=== PATIENT | male | born 1955 | race Caucasian/White ===

== ENCOUNTER 2017-10-17 14:02 | Emergency (ER) | payer OTHER ==
[2017-10-17 14:16] VITALS: BMI 25.8
--- NOTE | 2017-10-17 14:30 | C.PDOC ---
History Of Present Illness 62 year old male is brought in by EMS after being found outside [employer]-[address] intoxicated. Patient was laying on the ground and was brought in by EMS for further evaluation. Patient has slurred speech but is conscious. Patient denies any acute complaints, SI/HI, hallucinations. Patient had a bottle of vodka on him that was removed. Chief Complaint (Nursing): Substance Abuse History Per: Patient History/Exam Limitations: intoxication Onset/Duration Of Symptoms: Hrs Current Symptoms Are (Timing): Still Present Suicide/Self Injury Attempted (Context): None Modifying Factor(s): Alcohol Associated Symptoms: denies: Depression, Suicidal Thoughts, Suicidal Plan Involuntary Hold By: None Recent travel outside of the [place]: No Additional History Per: Patient Past Medical History Reviewed: Historical Data, Nursing Documentation, Vital Signs Vital Signs: Last Vital Signs Temp Pulse 93 H 10/17/17 17:54 Resp 16 10/17/17 17:54 BP 138/85 10/17/17 17:54 Pulse Ox 98 10/17/17 17:54 - Medical History PMH: Depression Surgical History: Hernia Repair Family History: States: Unknown Family Hx - Social History Hx Tobacco Use: Yes Hx Alcohol Use: Yes Hx Substance Use: No - Immunization History Hx Tetanus Toxoid Vaccination: No Hx Influenza Vaccination: No Hx Pneumococcal Vaccination: No Review Of Systems Constitutional: Negative for: Fever, Chills Cardiovascular: Negative for: Chest Pain Respiratory: Negative for: Cough, Shortness of Breath Gastrointestinal: Negative for: Nausea, Vomiting, Abdominal Pain Skin: Negative for: Rash Neurological: Negative for: Weakness, Numbness Psych: Negative for: Depression, Suicidal ideation Physical Exam - Physical Exam Appears: Non-toxic, No Acute Distress Skin: Normal Color, Warm, Dry Head: Atraumatic, Normacephalic Eye(s): bilateral: Normal Inspection Nose: No Discharge Oral Mucosa: Moist Neck: Normal ROM, Supple Chest: Symmetrical Cardiovascular: Rhythm Regular, No Murmur Respiratory: Normal Breath Sounds, No Rales, No Rhonchi, No Wheezing Gastrointestinal/Abdominal: Soft, No Tenderness, No Guarding, No Rebound Extremity: Normal ROM, No Tenderness, No Swelling Neurological/Psych: Oriented x3 Medical Decision Making Medical Decision Making: Impression: Alcohol intoxication Plan: * Frequent neurological checks * D/C when sober Disposition - Disposition Disposition: ELOPEMENT - ER ONLY Disposition Time: 09:09 Condition: FAIR Forms: [facility] (Spanish) - Clinical Impression Clinical Impression: Alcohol intoxication - Scribe Statement The provider has reviewed the documentation as recorded by the Scribe Ellis Chacko All medical record entries made by the Scribe were at my direction and personally dictated by me. I have reviewed the chart and agree that the record accurately reflects my personal performance of the history, physical exam, medical decision making, and the department course for this patient. I have also personally directed, reviewed, and agree with the discharge instructions and disposition.
[2017-10-17 14:37] VITALS: RESP 16
[2017-10-17 17:54] VITALS: BP 138/85; PULSE 93; O2SAT 98
== END 2017-10-17 18:20 | disposition left against medical advice (07) ==
LOC: C.ER 14:02
DX: F10.129 Alcohol abuse with intoxication, unspecified (principal); Y90.9 Presence of alcohol in blood, level not specified

== ENCOUNTER 2018-01-05 00:03 | Emergency (ER) | payer OTHER ==
[2018-01-05 00:03] VITALS: BMI 25.8
[2018-01-05] MEDS ORDERED: Albuterol 0.083% Inhal Sol (2.5 mg/3 mL) UD INH STA (00:34)
--- NOTE | 2018-01-05 00:35 | C.PDOC ---
History Of Present Illness 62 year old male presents to the emergency department with complaints of chest pain and inability to urinate. Patient reports that he has been drinking tonight , stating that he drank vodka and beer. Patient denies ever using breathing medications and states that he smokes a pack a day. Chief Complaint (Nursing): Shortness Of Breath History Per: Patient History/Exam Limitations: no limitations Onset/Duration Of Symptoms: Hrs Current Symptoms Are (Timing): Still Present Quality: "Pain" Associated Symptoms: Chest Pain, Other (inability to urinate) Past Medical History Reviewed: Historical Data, Nursing Documentation, Vital Signs Vital Signs: Last Vital Signs Temp 98.2 F 01/05/18 05:46 Pulse 90 01/05/18 05:46 Resp 20 01/05/18 05:46 BP 117/60 01/05/18 05:46 Pulse Ox 95 01/05/18 05:46 - Medical History PMH: Arthritis, Asthma, Depression, Seizures (ETOH withdrawal) Surgical History: Hernia Repair Family History: States: No Known Family Hx - Social History Hx Tobacco Use: Yes (1 pack/day) Hx Alcohol Use: Yes Hx Substance Use: No - Immunization History Hx Tetanus Toxoid Vaccination: No Hx Influenza Vaccination: No Hx Pneumococcal Vaccination: No Review Of Systems Except As Marked, All Systems Reviewed And Found Negative. Cardiovascular: Positive for: Chest Pain Musculoskeletal: Positive for: Other (inability to urinate) Neurological: Positive for: Altered Mental Status Physical Exam - Physical Exam Appears: Non-toxic, No Acute Distress Skin: Warm, Dry Head: Atraumatic, Normacephalic Eye(s): bilateral: Normal Inspection Oral Mucosa: Moist Throat: Normal, No Erythema, No Exudate, No Drooling Neck: Normal Chest: Symmetrical Cardiovascular: Rhythm Regular Respiratory: Wheezing Gastrointestinal/Abdominal: Soft, No Tenderness, No Guarding, No Rebound, Other (protuberant) Back: Other (large lipoma located on right mid back) Extremity: Normal ROM Neurological/Psych: Other (intoxicated) ED Course And Treatment - Laboratory Results Result Diagrams: 01/05/18 00:43 01/05/18 00:43 ECG Rhythm: Sinus Rhythm (74bpm) ECG Interpretation: Normal Interpretation Of ECG: Normal sinus rhythm at 74bpm, normal intervals, no acute st/t wave changes. O2 Sat by Pulse Oximetry: 99 (RA) Pulse Ox Interpretation: Normal Medical Decision Making Medical Decision Making: Plan: EKG CMP Troponin CBC CXR One View Albuterol 7.5mg INH Solu-Wzypic572ua IVP Nebulizer Treatment Impression: Exacerbation of bronchitis, alcohol intoxication. Disposition - Disposition Referrals: [facility] [Outside] Disposition: HOME/ ROUTINE Disposition Time: 22:54 Condition: GOOD Instructions: COPD Including Emphysema (DC), Alcohol Abuse and Alcoholism (DC) Forms: [employer] (Chinese) Print Language: FIJIAN - Clinical Impression Clinical Impression: Bronchitis, Alcohol intoxication - Scribe Statement The provider has reviewed the documentation as recorded by the Scribe (Finesse Cope) Provider Attestation: All medical record entries made by the Scribe were at my direction and personally dictated by me. I have reviewed the chart and agree that the record accurately reflects my personal performance of the history, physical exam, medical decision making, and the department course for this patient. I have also personally directed, reviewed, and agree with the discharge instructions and disposition.
[2018-01-05 00:46] LABS: BASO # 0.1 K/uL (0.0-0.2); BASO % 0.7 % (0.0-2.0); EOS # 0.1 K/uL (0.0-0.7); HEMOGLOBIN 14.7 g/dL (12.0-18.0); LYMPH # 3.3 K/uL (1.0-4.3); MEAN CELL VOLUME 96.7 fL (80.0-94.0); MEAN CORPUSCULAR HEMOGLOBIN 34.1 pg (27.0-31.0); MEAN CORPUSCULAR HGB CONC 35.2 g/dL (33.0-37.0); MEAN PLATELET VOLUME 6.8 fL (7.2-11.7); MONO # 0.8 K/uL (0.0-0.8); MONO % 10.1 % (0.0-10.0); NEUT # 4.1 K/uL (1.8-7.0); NEUT % 49.2 % (50.0-75.0); RBC 4.32 Mil/uL (4.40-5.90); RED CELL DISTRIBUTION WIDTH 12.6 % (11.5-14.5); WHITE BLOOD COUNT 8.4 K/uL (4.8-10.8)
[2018-01-05] MEDS ORDERED: Albuterol-Ipratrop 3 mg / 0.5 (3 ml) UD ONE ×2 (00:51→02:43)
[2018-01-05 01:00] LABS: ALBUMIN 3.8 g/dL (3.5-5.0); ALT/SGPT 33 U/L (21-72); AST/SGOT 44 U/L (17-59); BLOOD UREA NITROGEN 6 mg/dL (9-20); CALCIUM 8.7 mg/dl (8.6-10.4); GFR AFRICAN-AMERICAN > 60; GFR NON-AFRICAN AMERICAN > 60
[2018-01-05] MEDS ORDERED: Albuterol-Ipratrop 3 mg / 0.5 (3 ml) UD INH STA (02:42)
[2018-01-05 05:47] VITALS: BP 117/60; PULSE 90; RESP 20; TEMP 98.2
--- NOTE | 2018-01-05 08:05 | RAD ---
Chest x-ray single frontal view History: Shortness of breath. Comparison: None available. Findings: Mild venous congestion. Bilateral hilar prominence. Biapical pleural thickening with upper lobe granulomatous changes. Patchy increased markings at the right lung base. Bibasilar breast and nipple shadows. Nodular density at the right lung base may represent prominent nipple shadow. Tortuous aorta. Degenerative changes in spine. Impression: Mild venous congestion. Bilateral hilar prominence. Biapical pleural thickening with upper lobe granulomatous changes. Patchy increased markings at the right lung base. Bibasilar breast and nipple shadows. Nodular density at the right lung base may represent prominent nipple shadow. Tortuous aorta.
[2018-01-05 22:55] VITALS: O2SAT 99
--- NOTE | 2018-01-06 23:06 | CARD ---
APPROVED REPORT EKG Measurement Heart [id number] PA [id number] <Conclusion> Normal sinus rhythm Normal ECG
== END 2018-01-05 05:58 | disposition home or self-care (01) ==
LOC: C.ER 00:03
DX: F10.129 Alcohol abuse with intoxication, unspecified (principal); J40 Bronchitis, not specified as acute or chronic; F17.210 Nicotine dependence, cigarettes, uncomplicated

== ENCOUNTER 2018-01-19 22:01 | Emergency (ER) | payer OTHER ==
[2018-01-19 22:02] VITALS: BMI 25.8
--- NOTE | 2018-01-19 22:06 | C.PDOC ---
History Of Present Illness 62 year old male presents to the ED requesting for a place to stay. Patient is intoxicated and admits to drinking alcohol today. Patient denies SI/HI, hallucinations, fever, chills, CP, SOB. Time Seen by Provider: 01/19/18 22:05 History Per: Patient History/Exam Limitations: intoxication Onset/Duration Of Symptoms: Hrs Current Symptoms Are (Timing): Still Present Suicide/Self Injury Attempted (Context): None Modifying Factor(s): Alcohol Associated Symptoms: denies: Depression, Suicidal Thoughts, Suicidal Plan Recent travel outside of the [place]: No Additional History Per: Patient Past Medical History Reviewed: Historical Data, Nursing Documentation, Vital Signs Vital Signs: Last Vital Signs Temp 98.4 F 01/19/18 22:09 Pulse 69 01/19/18 22:09 Resp 18 01/19/18 22:09 BP 105/68 01/19/18 22:09 Pulse Ox 97 01/19/18 22:09 - Medical History PMH: Arthritis, Asthma, Depression, Seizures (ETOH withdrawal) Surgical History: Hernia Repair Family History: States: Unknown Family Hx - Social History Hx Tobacco Use: Yes (1 pack/day) Hx Alcohol Use: Yes Hx Substance Use: No - Immunization History Hx Tetanus Toxoid Vaccination: No Hx Influenza Vaccination: No Hx Pneumococcal Vaccination: No Review Of Systems Constitutional: Negative for: Fever, Chills Cardiovascular: Negative for: Chest Pain Respiratory: Negative for: Shortness of Breath Gastrointestinal: Negative for: Nausea, Vomiting Skin: Negative for: Rash Psych: Negative for: Depression, Suicidal ideation Physical Exam - Physical Exam Appears: Non-toxic, No Acute Distress Skin: Warm, Dry Head: Normacephalic Eye(s): bilateral: Normal Inspection Oral Mucosa: Moist Neck: Supple Chest: Symmetrical Cardiovascular: Rhythm Regular Respiratory: No Rales, No Rhonchi, No Wheezing Gastrointestinal/Abdominal: Soft, No Tenderness, No Guarding, No Rebound Back: Normal Inspection Extremity: No Tenderness, No Swelling Extremity: Bilateral: Atraumatic, Normal Color And Temperature, Normal ROM Neurological/Psych: Oriented x3, Normal Speech Gait: Steady ED Course And Treatment Pulse Ox Interpretation: Normal Reevaluation Time: 23:33 Reassessment Condition: Improved Disposition Counseled Patient/Family Regarding: Studies Performed, Diagnosis, Need For Followup - Disposition Referrals: [facility] [Outside] Disposition: HOME/ ROUTINE Disposition Time: 22:06 Condition: FAIR Instructions: Alcohol Abuse and Alcoholism (DC) - Clinical Impression Clinical Impression: Alcohol intoxication, Alcohol abuse - Scribe Statement The provider has reviewed the documentation as recorded by the Scribe Ellis Chacko All medical record entries made by the Scribe were at my direction and personally dictated by me. I have reviewed the chart and agree that the record accurately reflects my personal performance of the history, physical exam, medical decision making, and the department course for this patient. I have also personally directed, reviewed, and agree with the discharge instructions and disposition.
[2018-01-20 02:25] VITALS: BP 126/74; PULSE 79; RESP 16; TEMP 98.1; O2SAT 98
== END 2018-01-19 23:15 | disposition home or self-care (01) ==
LOC: C.ER 22:01
DX: F10.129 Alcohol abuse with intoxication, unspecified (principal); F17.210 Nicotine dependence, cigarettes, uncomplicated

== ENCOUNTER 2018-01-20 13:59 | Emergency (ER) | payer OTHER ==
[2018-01-20 13:59] VITALS: BMI 25.8
[2018-01-20 14:05] VITALS: RESP 18
[2018-01-20 15:16] VITALS: BP 138/72; PULSE 78; TEMP 98; O2SAT 98
--- NOTE | 2018-01-20 16:45 | C.PDOC ---
History Of Present Illness Patient is a 62 y/o male who presents to the ED BIBA for acute EtOH intoxication. Per EMS, patient was found lying down on the street. Patient admits to drinking vodka and beer today; denies any physical complaints at this time. Chief Complaint (Nursing): Medical Clearance History Per: Patient History/Exam Limitations: no limitations Onset/Duration Of Symptoms: Hrs Current Symptoms Are (Timing): Still Present Recent travel outside of the [place]: No Past Medical History Reviewed: Historical Data, Nursing Documentation, Vital Signs Vital Signs: Last Vital Signs Temp 98 F 01/20/18 15:15 Pulse 78 01/20/18 15:15 Resp 18 01/20/18 15:15 BP 138/72 01/20/18 15:15 Pulse Ox 98 01/20/18 16:49 - Medical History PMH: Arthritis, Asthma, Depression, Seizures (ETOH withdrawal) Surgical History: Hernia Repair Family History: States: No Known Family Hx - Social History Hx Tobacco Use: Yes (1 pack/day) Hx Alcohol Use: Yes Hx Substance Use: No - Immunization History Hx Tetanus Toxoid Vaccination: No Hx Influenza Vaccination: No Hx Pneumococcal Vaccination: No Review Of Systems Constitutional: Negative for: Fever, Chills Cardiovascular: Negative for: Chest Pain Neurological: Positive for: Other (EtOH intoxication) Physical Exam - Physical Exam Appears: Well, Non-toxic, No Acute Distress, Other (EtOH on breath) Skin: Normal Color, Warm, Dry Head: Atraumatic, Normacephalic Eye(s): bilateral: PERRL, EOMI Oral Mucosa: Moist Cardiovascular: Rhythm Regular, No Murmur Respiratory: Normal Breath Sounds, No Accessory Muscle Use, No Rales, No Rhonchi , No Wheezing Gastrointestinal/Abdominal: Soft, No Tenderness, No Guarding, No Rebound Extremity: Normal ROM (x4), No Swelling Neurological/Psych: Oriented x3, Normal Speech, Normal Cognition ED Course And Treatment O2 Sat by Pulse Oximetry: 98 Progress Note: Patient is awake, alert, oriented, and stable for discharge. Disposition - Disposition Referrals: [facility] [Outside] [facility] [Outside] [facility] [Outside] Disposition: HOME/ ROUTINE Disposition Time: 14:30 Condition: GOOD Additional Instructions: ARABELLA DESAI, thank you for letting us take care of you today. Your provider was Kevin Amos DO and you were treated for SUBSTANCE ABUSE. The emergency medical care you received today was directed at your acute symptoms. If you were prescribed any medication, please fill it and take as directed. It may take several days for your symptoms to resolve. Return to the Emergency Department if your symptoms worsen, do not improve, or if you have any other problems. Please contact your doctor or call one of the physicians/clinics you have been referred to that are listed on the Patient Visit Information form that is included in your discharge packet. Bring any paperwork you were given at discharge with you along with any medications you are taking to your follow up visit. Our treatment cannot replace ongoing medical care by a primary care provider outside of the emergency department. Thank you for allowing the [facility] team to be part of your care today. Do not drink too much alcohol and follow up with the clinic and AA for care. Instructions: Alcohol Abuse and Alcoholism (DC) Forms: [employer] (Cypriot) - Clinical Impression Clinical Impression: Alcohol ingestion - Scribe Statement The provider has reviewed the documentation as recorded by the Scribe Hilaria Parnell All medical record entries made by the Scribe were at my direction and personally dictated by me. I have reviewed the chart and agree that the record accurately reflects my personal performance of the history, physical exam, medical decision making, and the department course for this patient. I have also personally directed, reviewed, and agree with the discharge instructions and disposition.
== END 2018-01-20 15:22 | disposition home or self-care (01) ==
LOC: C.ER 13:59
DX: T51.91XA Toxic effect of unspecified alcohol, accidental (unintentional), initial encounter (principal)

== ENCOUNTER 2018-05-13 19:27 | Emergency (ER) | payer OTHER ==
[2018-05-13 19:27] VITALS: BMI 25.8
[2018-05-13 19:41] VITALS: BP 117/74; PULSE 75; RESP 18; TEMP 98.2; O2SAT 98
--- NOTE | 2018-05-13 19:42 | C.PDOC ---
History Of Present Illness 63 y/o male presents to the ED via EMS for complaints of shortness of breath, onset just prior to arrival. Patient admits to drinking today and states he usually smokes 1 PPD. At present, patients only complaint is mild SOB. Strong alcohol scent on breath. Otherwise he denies any nausea, vomiting, congestion, fever, chills, or other associated symptoms. Time Seen by Provider: 05/13/18 19:42 Chief Complaint (Nursing): Shortness Of Breath History Per: Patient History/Exam Limitations: no limitations Onset/Duration Of Symptoms: Hrs Current Symptoms Are (Timing): Still Present Past Medical History Reviewed: Historical Data, Nursing Documentation, Vital Signs Vital Signs: Last Vital Signs Temp 98.2 F 05/13/18 19:37 Pulse 75 05/13/18 19:37 Resp 18 05/13/18 19:37 BP 117/74 05/13/18 19:37 Pulse Ox 98 05/13/18 19:37 - Medical History PMH: Arthritis, Asthma, Depression, Seizures (ETOH withdrawal) Surgical History: Hernia Repair Family History: States: Unknown Family Hx - Social History Hx Tobacco Use: Yes (1 pack/day) Hx Alcohol Use: Yes Hx Substance Use: No - Immunization History Hx Tetanus Toxoid Vaccination: No Hx Influenza Vaccination: No Hx Pneumococcal Vaccination: No Review Of Systems Constitutional: Negative for: Fever, Chills ENT: Negative for: Nose Congestion, Throat Pain Cardiovascular: Negative for: Chest Pain Respiratory: Positive for: Shortness of Breath Gastrointestinal: Negative for: Nausea, Vomiting Neurological: Negative for: Weakness, Numbness, Dizziness Physical Exam - Physical Exam Appears: Non-toxic, No Acute Distress Skin: Warm, Dry Head: Normacephalic Eye(s): bilateral: Normal Inspection Oral Mucosa: Moist Neck: Trachea Midline, Supple Chest: Symmetrical Cardiovascular: Rhythm Regular Respiratory: No Accessory Muscle Use, No Rales, Rhonchi (scattered), Wheezing (few wheezes bilaterally) Gastrointestinal/Abdominal: Soft, No Tenderness, No Distention, No Guarding Extremity: No Pedal Edema, No Calf Tenderness Extremity: Bilateral: Atraumatic, Normal Color And Temperature Pulses: Left Dorsalis Pedis: Normal, Right Dorsalis Pedis: Normal Neurological/Psych: Oriented x3 Gait: Steady ED Course And Treatment O2 Sat by Pulse Oximetry: 98 Pulse Ox Interpretation: Normal Progress Note: went to re-examine the pt, but pt had eloped Disposition Counseled Patient/Family Regarding: Studies Performed, Diagnosis - Disposition Referrals: Non [facility] Provider, [Primary Care Provider] - Disposition: ELOPEMENT - ER ONLY Disposition Time: 19:42 Condition: FAIR Forms: [facility] (Papua [place] Guinean) - Clinical Impression Clinical Impression: Alcohol abuse, Alcohol intoxication, Dyspnea - Scribe Statement The provider has reviewed the documentation as recorded by the Scribe (Hoda Davila) All medical record entries made by the Scribe were at my direction and personally dictated by me. I have reviewed the chart and agree that the record accurately reflects my personal performance of the history, physical exam, medical decision making, and the department course for this patient. I have also personally directed, reviewed, and agree with the discharge instructions and disposition.
[2018-05-13] MEDS ORDERED: Albuterol-Ipratrop 3 mg / 0.5 (3 ml) UD IH SCH (19:45)
== END 2018-05-13 20:00 | disposition left against medical advice (07) ==
LOC: SUPCPDRO 19:27 → C.ER 19:27
DX: R06.00 Dyspnea, unspecified (principal); F10.129 Alcohol abuse with intoxication, unspecified; Y90.9 Presence of alcohol in blood, level not specified

== ENCOUNTER 2018-11-05 22:38 | Emergency (ER) | payer OTHER ==
[2018-11-05 22:39] VITALS: BMI 25.8
--- NOTE | 2018-11-05 23:04 | C.PDOC ---
History Of Present Illness The patient is brought to the ED by EMS after he was found publicly intoxicated prior to arrival. Patient admits to drinking earlier today, denies trauma and has no complaints at this time. Time Seen by Provider: 11/05/18 23:03 Chief Complaint (Nursing): Substance Abuse History Per: Patient, EMS History/Exam Limitations: intoxication Onset/Duration Of Symptoms: Hrs Current Symptoms Are (Timing): Still Present Suicide/Self Injury Attempted (Context): None Modifying Factor(s): Alcohol Severity: None Pain Scale Rating Of: 0 Associated Symptoms: denies: Suicidal Thoughts, Suicidal Plan Involuntary Hold By: None Recent travel outside of the [place]: No Additional History Per: Patient Past Medical History Reviewed: Historical Data, Nursing Documentation, Vital Signs Vital Signs: Last Vital Signs Temp 97.6 F 11/05/18 22:50 Pulse 70 11/05/18 22:50 Resp 20 11/05/18 22:50 BP 146/81 11/05/18 22:50 Pulse Ox 96 11/05/18 22:50 - Medical History PMH: Arthritis, Asthma, Depression, Seizures (ETOH withdrawal) Surgical History: Hernia Repair Family History: States: Unknown Family Hx - Social History Hx Tobacco Use: Yes (1 pack/day) Hx Alcohol Use: Yes Hx Substance Use: No - Immunization History Hx Tetanus Toxoid Vaccination: No Hx Influenza Vaccination: No Hx Pneumococcal Vaccination: No Review Of Systems Constitutional: Negative for: Fever, Chills Cardiovascular: Negative for: Chest Pain, Palpitations Respiratory: Negative for: Cough, Shortness of Breath Gastrointestinal: Negative for: Nausea, Vomiting, Abdominal Pain Skin: Negative for: Rash, Lesions, Jaundice, Bruising Neurological: Negative for: Weakness, Numbness Psych: Positive for: Other (alcohol intoxication ). Negative for: Suicidal ideation Physical Exam - Physical Exam Appears: Non-toxic, No Acute Distress, Other (visibly intoxicated ) Skin: Warm, Dry Head: Normacephalic Oral Mucosa: Moist, Other (alcohol on breath ) Neck: Supple Chest: Symmetrical, No Deformity Respiratory: No Accessory Muscle Use Extremity: Normal ROM Neurological/Psych: Other (arousable to touch and verbal stimuli ) ED Course And Treatment O2 Sat by Pulse Oximetry: 96 (on RA) Pulse Ox Interpretation: Normal Reevaluation Time: 05:35 Reassessment Condition: Improved Disposition Counseled Patient/Family Regarding: Studies Performed, Diagnosis, Need For Followup - Disposition Referrals: [facility] [Outside] Disposition: HOME/ ROUTINE Disposition Time: 23:03 Condition: FAIR Instructions: Alcohol Abuse and Alcoholism (DC) Forms: [facility] (Saudi Arabian) - Clinical Impression Clinical Impression: Alcohol abuse, Alcohol intoxication - Scribe Statement The provider has reviewed the documentation as recorded by the Scribe (Violeta Lockhart) Provider Attestation: All medical record entries made by the Scribe were at my direction and personally dictated by me. I have reviewed the chart and agree that the record accurately reflects my personal performance of the history, physical exam, medical decision making, and the department course for this patient. I have also personally directed, reviewed, and agree with the discharge instructions and disposition.
[2018-11-06 04:26] VITALS: PULSE 80
[2018-11-06 05:35] VITALS: BP 110/62; RESP 16; TEMP 97.9
[2018-11-06 05:36] VITALS: O2SAT 96
== END 2018-11-06 05:41 | disposition home or self-care (01) ==
LOC: C.ER 22:38
DX: F10.129 Alcohol abuse with intoxication, unspecified (principal); F17.210 Nicotine dependence, cigarettes, uncomplicated

== ENCOUNTER 2018-11-10 07:40 | Emergency (ER) | payer OTHER ==
[2018-11-10 07:41] VITALS: BMI 25.8
[2018-11-10 07:48] VITALS: BP 147/91; PULSE 89; RESP 18; TEMP 98; O2SAT 97
--- NOTE | 2018-11-10 07:56 | C.PDOC ---
History Of Present Illness GEN ITCH SINCE YEST. NO RASH, LESIONS. NO OTHER ASSOC SX. NO MEDS TRIED. DENIES HO PRIOR SIM SX EXAM NONTOXIC NO ANGIOEDEMA SKIN OCC EXCORIATION WELCH ON BACK, REMAINDER BODY NO LESIONS HIVES REMAINDER NEG MDM PRURITIS, NO S/S ANGIOEDEMA. NO GROSS LESIONS C/W BED BUGS. SYMPTOMATIC TX, CLINIC FU Time Seen by Provider: 11/10/18 07:54 Chief Complaint (Nursing): Abnormal Skin Integrity History Per: Patient History/Exam Limitations: no limitations Onset/Duration Of Symptoms: Days Current Symptoms Are (Timing): Still Present Severity: Moderate Past Medical History Reviewed: Historical Data, Nursing Documentation, Vital Signs Vital Signs: Last Vital Signs Temp 98 F 11/10/18 07:45 Pulse 89 11/10/18 07:45 Resp 18 11/10/18 07:45 BP 147/91 H 11/10/18 07:45 Pulse Ox 97 11/10/18 07:45 - Medical History PMH: Arthritis, Asthma, Depression, Seizures (ETOH withdrawal) Surgical History: Hernia Repair Family History: States: No Known Family Hx - Social History Hx Tobacco Use: Yes (1 pack/day) Hx Alcohol Use: Yes Hx Substance Use: No - Immunization History Hx Tetanus Toxoid Vaccination: No Hx Influenza Vaccination: No Hx Pneumococcal Vaccination: No Review Of Systems Except As Marked, All Systems Reviewed And Found Negative. Skin: Positive for: Other (generalized itching). Negative for: Rash, Lesions Physical Exam - Physical Exam Appears: Non-toxic, Other (no angioedema) Skin: Warm, Dry, No Rash, Other (occasional excoriation welch on back, no lesions, no hives) Head: Atraumatic, Normacephalic Eye(s): bilateral: Normal Inspection Cardiovascular: Rhythm Regular Respiratory: Other (NARD) Neurological/Psych: Oriented x3, Normal Speech ED Course And Treatment O2 Sat by Pulse Oximetry: 97 (RA) Pulse Ox Interpretation: Normal Medical Decision Making Medical Decision Making: Plan: --Benadryl PO --Decadron PO --Pepcid PO PRURITIS, NO S/S ANGIOEDEMA. NO GROSS LESIONS C/W BED BUGS. SYMPTOMATIC TX, CLINIC FU Disposition Counseled Patient/Family Regarding: Diagnosis, Need For Followup - Disposition Referrals: [facility] [Outside] [facility] [Outside] Disposition: HOME/ ROUTINE Disposition Time: 07:56 Condition: IMPROVED Additional Instructions: TAKE BENADRYL DIRECTED NEEDED FOR ITCH. CALAMINE LOTION OR OTHER ANTI-ITCH TOPICAL OVER THE COUNTER CREAMS/LOTIONS DIRECTED, NEEDED. FOLLOW UP CLINIC. Instructions: Itchy Skin Forms: [facility] (Mauritian) - Clinical Impression Clinical Impression: Pruritic dermatitis - Scribe Statement The provider has reviewed the documentation as recorded by the Jay Head Provider Attestation: All medical record entries made by the Jay were at my direction and personally dictated by me. I have reviewed the chart and agree that the record accurately reflects my personal performance of the history, physical exam, medical decision making, and the department course for this patient. I have also personally directed, reviewed, and agree with the discharge instructions and disposition.
== END 2018-11-10 08:09 | disposition home or self-care (01) ==
LOC: C.ER 07:40
DX: L30.8 Other specified dermatitis (principal)
CPT/HCPCS: 99283; J8540